=== PATIENT | male | born 1965 | race Hispanic/Latino ===

== ENCOUNTER 2019-11-20 19:24 | Emergency (ER) | payer MEDICARE ==
[2019-11-20] MEDS ORDERED: ACETAMINOPHEN 325 MG TAB ONE (21:59)
[2019-11-20] MEDS ORDERED: MORPHINE SULFATE 4 MG/1ML SYG ONE (22:00)
[2019-11-20] MEDS ORDERED: PROCHLORPERAZINE EDISYLATE 10 MG/2 ML VIAL ONE (22:01)
== END 2019-11-20 22:41 | disposition home or self-care (01) ==
LOC: EDH 19:24
DX: K74.69 Other cirrhosis of liver (principal); R51 Headache; Z72.0 Tobacco use; Z98.890 Other specified postprocedural states
CPT/HCPCS: 36415; 70450; 71046; 80053; 80305; 81001; 82140; 82150; 82550; 84484; 85025; 85610; 85730; 93005; 96374; 96375; 99285; J0780; J2270

== ENCOUNTER 2020-06-11 05:43 | Day surgery (SDC) | payer MEDICARE ==
[~2020-06-11] VITALS: Ht 180.3 cm; Wt 93.0 kg
[~2020-06-11 05:43] MED LIST: FURO20TA4 PO; LACT10SO32 PO; OMEP40CA13 PO; SERT100T12 PO; SPIR50TA5 PO; THIA100T75 PO
[2020-06-11] MEDS ORDERED: SODIUM CHLORIDE 0.9% 1000ML 1,000 ML IV ONE (06:23)
[2020-06-11 06:32] VITALS: BP 139/69
[2020-06-11] MEDS ORDERED: IRON-23 PO (06:44)
[2020-06-11] MEDS ORDERED: LIDOCAINE HCL 1% 20 ML VIAL ONE (06:58)
[2020-06-11] MEDS ORDERED: FENTANYL CITRATE PF 50 MCG/1 ML 2ML VIAL ONE (06:58)
[2020-06-11] MEDS ORDERED: GLYCOPYRROLATE 0.2 MG/ML 5 ML VIAL ONE (06:58)
[2020-06-11] MEDS ORDERED: PROPOFOL 10 MG/ML 20ML VIAL IV ONE ×2 (06:59→07:23)
[2020-06-11] MEDS ORDERED: SUCCINYLCHOLINE CHLORIDE 20 MG/ML 10 ML VIAL ONE (07:00)
[2020-06-11 07:35] VITALS: BP 138/78
[2020-06-11] MEDS ORDERED: IPRATROPIUM/ALBUTEROL SULFATE 3 ML SOLUTION IH ONE (07:43)
[2020-06-11 07:44] VITALS: BP 135/81
[2020-06-11 07:50] VITALS: BP 143/78
== END 2020-06-11 08:08 | disposition home or self-care (01) ==
LOC: ENDO 05:43 → DAH 05:43 → ENDO 08:08
PROVIDERS: ATTEND Internal Medicine
DX: I85.10 Secondary esophageal varices without bleeding (principal); K74.69 Other cirrhosis of liver; Z20.828 Contact with and (suspected) exposure to other viral communicable diseases; I86.4 Gastric varices; K21.9 Gastro-esophageal reflux disease without esophagitis; F32.9 Major depressive disorder, single episode, unspecified; F17.200 Nicotine dependence, unspecified, uncomplicated; D50.9 Iron deficiency anemia, unspecified; Z86.19 Personal history of other infectious and parasitic diseases; Z86.010 Personal history of colon polyps; Z79.899 Other long term (current) drug therapy; Z98.890 Other specified postprocedural states
CPT/HCPCS: 43259; 87426; 94640; A4215 ×2; A4221; A4222; A4223; A4606; A4620; A4657; A4663; J0330; J2704 ×2; J3010; J3490; J7030; 43237